=== PATIENT | male | born 1960 | race African-American/Black ===

== ENCOUNTER 2020-08-21 21:13 | Emergency (ER) | payer MEDICAID ==
[~2020-08-21] VITALS: Ht 172.7 cm; Wt 72.0 kg
[2020-08-21] MEDS ORDERED: HYDROCODONE/ACETAMINOPHEN 5/325MG TABLET PO ONE (22:45)
[2020-08-21] MEDS ORDERED: METHOCARBAMOL 500MG TABLET PO ONE (22:45)
[2020-08-22] MEDS ORDERED: IBUP-2029 MT (01:21)
[2020-08-22 01:30] VITALS: BP 149/81
== END 2020-08-22 01:30 | disposition home or self-care (01) ==
LOC: ER 21:13
DX: S20.212A Contusion of left front wall of thorax, initial encounter (principal); S83.91XA Sprain of unspecified site of right knee, initial encounter; R07.89 Other chest pain; W01.0XXA Fall on same level from slipping, tripping and stumbling without subsequent striking against object, initial encounter; Y93.89 Activity, other specified; Y92.89 Other specified places as the place of occurrence of the external cause; Y99.8 Other external cause status
CPT/HCPCS: 71101; 73560; 99284